=== PATIENT | female | born 1950 | race Caucasian/White ===

== ENCOUNTER → 2019-04-15 | Outpatient (CLI) | payer OTHER ==
--- NOTE | 2019-04-15 12:45 | CARD ---
MR#: [id number] Date of Study: 04/15/2019 Ordering Physician: HAILEY COTO, Referring Physician: HAILEY COTO, Tech: Tory Altamirano APPROVED REPORT EXAM: Two-dimensional and M-mode echocardiogram with Doppler and color Doppler. Other Information Quality : AverageHR: 50bpm INDICATION Palpitations 2D DIMENSIONS RVDd2.4 (2.9-3.5cm)Left Atrium(2D)3.0 (1.6-4.0cm) IVSd0.8 (0.7-1.1cm)Aortic Root(2D)2.8 (2.0-3.7cm) LVDd4.5 (3.9-5.9cm)LVOT Diameter1.8 (1.8-2.4cm) PWd1.0 (0.7-1.1cm)LVDs3.5 (2.5-4.0cm) FS (%) 22.3 %SV41.8 ml LVEF(%)45.1 (>50%) Aortic Valve AoV Peak Boy.119.3cm/sAoV VTI28.9cm AO Peak GR.5.7mmHgLVOT Peak Boy.95.4cm/s LVOT VTI 22.18cmAO Mean GR.3mmHg TIGIST (VMAX)1.33im7ZED (VTI)1.86cm2 Mitral Valve MV E Tfmqjfup52.2cm/sMV DECEL [id number] MV A Vvmlzjai13.5cm/sMV GHO47da E/A Ratio1.2MVA (PHT)3.48cm2 TDI E/Lateral E'7.1E/Medial E'8.8 Pulmonary Valve PV Peak Wbvmfuah14.9cm/sPV Peak Grad.3mmHg Tricuspid Valve TR P. Ncubqqib985kk/sRAP XZZYBJDP2kfZc TR Peak Gr.00ymNkPPNM96jxOt Pulmonary Vein S1 Zjptufvo66.6cm/sD2 Rrjzmfkt11.5cm/s PVa [id number] LEFT VENTRICLE The left ventricle is normal size. There is normal left ventricular wall thickness. The left ventricu lar systolic function is normal and the ejection fraction is within normal range. EF 55% There is nor mal LV segmental wall motion. The left ventricular diastolic function and filling is normal for age. RIGHT VENTRICLE The right ventricle is normal size. There is normal right ventricular wall thickness. The right ventr icular systolic function is normal. ATRIA The left atrium size is normal. The right atrium size is normal. The interatrial septum is intact wit h no evidence for an atrial septal defect or patent foramen ovale as noted on 2-D or Doppler imaging. AORTIC VALVE The aortic valve is normal in structure and function. Doppler and Color Flow revealed trace aortic re gurgitation. There is no significant aortic valvular stenosis. MITRAL VALVE The mitral valve is normal in structure and function. There is no evidence of mitral valve prolapse. There is no mitral valve stenosis. Doppler and Color-flow revealed trace mitral regurgitation. TRICUSPID VALVE The tricuspid valve is normal in structure and function. Doppler and Color Flow revealed trace tricus pid regurgitation with an estimated PAP of 31 mmHg. There is no tricuspid valve stenosis. PULMONIC VALVE The pulmonic valve is not well visualized. Doppler and Color Flow revealed trace pulmonic valvular re gurgitation. There is no pulmonic valvular stenosis. GREAT VESSELS The aortic root is normal in size. The IVC is normal in size and collapses >50% with inspiration. PERICARDIAL EFFUSION There is no evidence of significant pericardial effusion. Critical Notification Critical Value: No <Conclusion> The left ventricular systolic function is normal and the ejection fraction is within normal range. EF 55% There is normal LV segmental wall motion. Signed by : Masoud Cristina, Electronically Approved : 04/15/2019 12:45:26
== END | disposition home or self-care (01) ==
LOC: ECHO 10:11
PROVIDERS: ATTEND Internal Medicine Cardiovascular Disease
DX: R00.2 Palpitations (principal)
CPT/HCPCS: 93306

== ENCOUNTER → 2021-04-28 | Outpatient (CLI) | payer MEDICARE ==
--- NOTE | 2021-04-28 22:16 | CARD ---
MR#: [id number] Date of Study: 04/28/2021 Ordering Physician: HAILEY COTO, Referring Physician: HAILEY COTO, Tech: Toyr Altamirano [facility] APPROVED REPORT EXAM: Two-dimensional and M-mode echocardiogram with Doppler and color Doppler. Other Information Quality : AverageHR: 59bpm Technically limited study due to body habitus. INDICATION Palpitations RISK FACTORS Hyperlipidemia 2D DIMENSIONS RVDd2.6 (2.9-3.5cm)Left Atrium(2D)3.1 (1.6-4.0cm) IVSd0.9 (0.7-1.1cm)Aortic Root(2D)2.7 (2.0-3.7cm) LVDd5.0 (3.9-5.9cm)LVOT Diameter2.0 (1.8-2.4cm) PWd1.0 (0.7-1.1cm)LVDs2.8 (2.5-4.0cm) FS (%) 43.3 %SV88.6 ml LVEF(%)64.2 (>50%) Aortic Valve AoV Peak Boy.140.5cm/sAoV VTI30.8cm AO Peak GR.7.9mmHgLVOT Peak Boy.118.3cm/s LVOT VTI 25.16cmAO Mean GR.4mmHg TIGIST (VMAX)2.24ak7OTY (VTI)2.65cm2 Mitral Valve MV E Ibtzhque78.5cm/sMV DECEL [id number] MV A Fulfapfx92.4cm/sMV DKO45ka E/A Ratio0.8MVA (PHT)2.46cm2 TDI E/Lateral E'5.7E/Medial E'7.3 Pulmonary Valve PV Peak Levdpeui879.7cm/sPV Peak Grad.4mmHg Tricuspid Valve TR P. Oblxtjjj908ts/sRAP UGFHFCHL4dkNo TR Peak Gr.59qbLnWXOK94qeVn Pulmonary Vein S1 Vmdbybny93.3cm/sD2 Llhlcmkb35.9cm/s PVa [id number] LEFT VENTRICLE The left ventricle is normal size. There is normal left ventricular wall thickness. The left ventricu lar systolic function is normal and the ejection fraction is within normal range. The Ejection Fracti on is 50-55%. There is normal LV segmental wall motion. Tissue Doppler imaging reveals mild left vent ricular diastolic dysfunction. RIGHT VENTRICLE The right ventricle is normal size. There is normal right ventricular wall thickness. The right ventr icular systolic function is normal. ATRIA The left atrium size is normal. The right atrium size is normal. The interatrial septum is intact wit h no evidence for an atrial septal defect or patent foramen ovale as noted on 2-D or Doppler imaging. AORTIC VALVE The aortic valve is not well visualized. Technically limited images. Doppler and Color Flow revealed no significant aortic regurgitation. There is no significant aortic valvular stenosis. Calculated aor tic valve area is 2.94 cm2 with maximum pressure gradient of 9 mmHg and mean pressure gradient of 5 m mHg. MITRAL VALVE The mitral valve is normal in structure and function. There is no evidence of mitral valve prolapse. There is no mitral valve stenosis. Doppler and Color-flow revealed trace mitral regurgitation. TRICUSPID VALVE The tricuspid valve is normal in structure and function. Doppler and Color Flow revealed trace tricus pid regurgitation with an estimated PAP of 31 mmHg. There is no tricuspid valve stenosis. PULMONIC VALVE The pulmonic valve is not well visualized. Doppler and Color Flow revealed trace pulmonic valvular re gurgitation. There is no pulmonic valvular stenosis. GREAT VESSELS The aortic root is normal in size. The IVC is normal in size and collapses >50% with inspiration. PERICARDIAL EFFUSION There is no evidence of significant pericardial effusion. Critical Notification Critical Value: No <Conclusion> The left ventricular systolic function is normal and the ejection fraction is within normal range. Th e Ejection Fraction is 50-55%. There is normal LV segmental wall motion. Technically difficult study. Signed by : Masoud Cristina, Electronically Approved : 04/28/2021 22:15:58
== END ==
LOC: ECHO 10:50
PROVIDERS: ATTEND Internal Medicine Cardiovascular Disease
DX: R00.2 Palpitations (principal)
CPT/HCPCS: 93306